=== PATIENT | female | born 1975 | race Two or more races ===

== ENCOUNTER 2024-09-17 06:30 | Day surgery (SDC) | payer MEDICAID, SELFPAY ==
[2024-09-12 09:51] VITALS: BMI 27.1
[2024-09-12 11:53] LABS: Basophils # (Auto) 0.1 Thou/mm3 (0.0-0.2); Basophils % (Auto) 1 % (0-2.5); Eosinophils % (Auto) 0 % (0-10); Hematocrit 39.7 % (36.0-46.0); Immature Granulocytes % (Auto) 0 % (0-0); Immature Granulocytes Auto 0.02 Thou/mm3 (0.00-0.00); Lymphocytes # (Auto) 1.2 Thou/mm3 (1.0-4.8); Lymphocytes % (Auto) 17 % (10-50); Mean Corpuscular HGB Conc 35.3 g/dl (31.0-37.0); Mean Corpuscular Hemoglobin 32.9 pg (25.0-35.0); Mean Corpuscular Volume 93 fL (80-100); Monocytes # (Auto) 0.3 Thou/mm3 (0.0-0.8); Monocytes % (Auto) 4 % (0-12); Neutrophils # (Auto) 5.4 Thou/mm3 (1.8-7.7); Neutrophils % (Auto) 78 % (37-80); Nucleated Red Blood Cell % 0 /100 WBC (0); Platelet Count 410 Thou/mm3 (140-440); RDW Standard Deviation 39.9 fL (36.4-46.3); Red Blood Count 4.26 Miln/mm3 (4.00-5.20)
[2024-09-12 12:00] LABS: Beta HCG,Quantitative 2 mIU/mL (<5.0)
[2024-09-12 12:51] LABS: Hepatitis A Antibody IgM Non Reactive (Non React); Hepatitis B Core Antibody IgM Non Reactive (Non React); Hepatitis B Surface Antigen Non Reactive (Non React); Hepatitis C Antibody Non Reactive (Non React)
[2024-09-12 13:00] LABS: HIV (1&2) Antibody Rapid Non-Reactive
[2024-09-17] VITALS (8 sets, daily range): BP systolic 109–123; BP diastolic 56–80; PULSE 62–90; RESP 12–17; TEMP 36.2–36.5; O2SAT 98–100; BMI 27.3
--- NOTE | 2024-09-17 10:05 | SUR.PHASEI ---
pt received from OR in recovery bay 4. pt asleep but responds to voice, breathing unlabored on room air. v/s stable. pt dressing peripad cdi. report received from Adalid HORN and Zane BENSON.
--- NOTE | 2024-09-17 10:20 | PD.GYNPROC ---
Operative Note - PARCEL POST DELIVERY Procedure Date of procedure: 09/17/24 Procedure Performed: Diagnostic hysteroscopy removal of IUD Indication: Lost IUD strings Failed attempts of retrieval in the office by 2 different providers Ultrasound showing endometrial cavity location of IUD Pre-Op diagnosis: Same Post-Op diagnosis: Same Anesthesia type: General Procedure description: The patient was seen prior to surgery. The potential benefits and risks of the procedure, the likelihood of success, and the problems related to recuperation have been discussed with patient who agrees to proceed. The possible results of nontreatment and significant alternatives to the proposed procedure have also been explained, along with the risks and benefits of the alternatives. Risks and benefits of chosen anesthetic/sedation and possible use of blood/blood products (if appropriate) were discussed.The patient was identified as Shanna Sevilla and the procedure verified. A time out was held reviewing the patient identifiers, procedure planned and allergies. At this point the procedure was begun. The patient was positioned and prepped in routine fashion in the dorsal lithotomy position using yellowfin stirups. On examination under anesthesia,the uterus was retroverted to a normal size. Bladder was drained by catheter. A weighted speculum was then placed into the patient's posterior vagina. A rosa m was used to expose the anterior lip of the cervix which was then grasped by a single tooth tenaculum.The cervix was then very easily dilated to a size 6 Hegar dilator. The hysteroscope was then placed under direct visualization. Warm lactated Ringer's was used as a distention medium. The patient's uterus was found to have the IUD which was grasped using a hysteroscopy grasper and taken out. No strings were visible on the IUD or on survey of entire endometrial cavity , device were withdrawn from the cavity. There was minimal bleeding noted and tenaculum was removed. Hemostasis was acheived with a ringed forcep on anterior cervix. Estimated blood loss (ml): 5 Surgical staff Operation Date: 09/17/24 08:45 Case Staff CHARGE COORDINATOR: Zane Clark art therapy certified supervisor: Ector Manzanares Diagnosis Problem List Completed Was Problem List Reviewed/Reconciled?: Yes
--- NOTE | 2024-09-17 11:20 | SUR.PHASEII ---
pt awake and alert, breathing unlabored on room air. v/s stable. pt dressing peripad cdi. pt able to ambulate to wheelchair with steady gait. d/c instructions given with Cesar in room using interpreter for the deaf [id number], all questions answered. pt d/c via wheelchair with all belongings.
== END 2024-09-17 11:20 | disposition home or self-care (01) ==
PROVIDERS: PCP Family Medicine; Referring Provider Student in an Organized Health Care Education/Training Program; Visit Provider Student in an Organized Health Care Education/Training Program
PROC: 0UJD8ZZ Inspection of Uterus and Cervix, Via Natural or Artificial Opening Endoscopic (ICD-10-PCS; CPT 58555; principal; 2024-09-17 08:30)
DX: T83.32XA Displacement of intrauterine contraceptive device, initial encounter (principal)
CPT/HCPCS: 58562; 36415; 80074; 84702; 85025; 86703; 86850; 86900; 86901; A4217; A4649; J1100; J1885; J2250; J2405; J2704; J3010